=== PATIENT | male | born 1980 | race Caucasian/White ===

== ENCOUNTER 2016-02-12 07:46 | Emergency (ER) | payer OTHER ==
--- NOTE | 2016-02-12 08:56 | ER Document Report ---
ED ENT - General Chief Complaint: Ear Pain Stated Complaint: EAR PAIN Mode of Arrival: Ambulatory Information source: Patient Notes: 35-year-old male presents to the emergency department complaining of intermittently persistent and progressively worsening right ear pain over the last week and a half. Reports feeling of congestion and pressure to right ear. Denies fever, drainage, difficulty breathing or swallowing. Reports had mild cold which had resolved prior to current symptoms starting. TRAVEL OUTSIDE OF THE [place] IN LAST 30 DAYS: No - HPI Patient complains to provider of: Ear problem Onset: Last week Onset/Duration: Intermittent, Persistent, Worse Quality of pain: Achy Severity: Moderate Pain Level: 3 Location of pain: Ears Similar symptoms previously: No Recently seen / treated by doctor: No - Related Data Allergies/Adverse Reactions: No Known Allergies Allergy (Verified 02/12/16 07:56) Past Medical History - General Information source: Patient - Social History Smoking Status: Current Every Day Smoker Cigarette use (# per day): Yes - 1/2 pk Frequency of alcohol use: Rare Drug Abuse: Marijuana Lives with: Family Family History: Other - depression Patient has suicidal ideation: No Patient has homicidal ideation: No - Past Medical History Cardiac Medical History: Reports: Hx Hypercholesterolemia Psychiatric Medical History: Reports: Hx Anxiety, Hx Depression - PTSD Past Surgical History: Reports: Hx Appendectomy - Immunizations Hx Diphtheria, Pertussis, Tetanus Vaccination: Yes Review of Systems - Review of Systems Constitutional: No symptoms reported EENT: See HPI Cardiovascular: No symptoms reported Respiratory: No symptoms reported Gastrointestinal: No symptoms reported Genitourinary: No symptoms reported Male Genitourinary: No symptoms reported Musculoskeletal: No symptoms reported Skin: No symptoms reported Hematologic/Lymphatic: No symptoms reported Neurological/Psychological: No symptoms reported -: Yes All other systems reviewed and negative Physical Exam - Vital signs Vitals: Temp Pulse Resp BP Pulse Ox 97.6 F 111 H 18 124/82 99 02/12/16 07:54 02/12/16 07:54 02/12/16 07:54 02/12/16 07:54 02/12/16 07:54 Interpretation: Normal - General General appearance: Appears well, Alert - HEENT Head: Normocephalic, Atraumatic Eyes: Normal Conjunctiva: Normal Extraocular movements intact: Yes Eyelashes: Normal Pupils: PERRL Ears: Normal. No: Pinna tenderness, Tragus tenderness External canal: Normal. No: Cerumen impaction, Erythema, Foreign body, Swollen Tympanic membrane: Injected - Right, Purulent effusion - Right, Serous effusion - Left. No: Hemotympanum, Perforation Sinus: Normal. No: Tenderness Nasal: Normal Mouth/Lips: Normal Mucous membranes: Normal, Moist Pharynx: Normal. No: Blood in hypopharynx, Erythema, Exudate, Peritonsillar abscess, Post nasal drainage, Retropharyngeal abscess, Tonsillar hypertrophy, Uvular edema, Potential airway comprom., Other Neck: Normal. No: Anterior cervical chain, Posterior cervical chain, Lymphadenopathy, Meningismus, Subcutaneous emphysema - Respiratory Respiratory status: No respiratory distress Chest status: Nontender Breath sounds: Normal - CTAB Chest palpation: Normal - Cardiovascular Rhythm: Regular Heart sounds: Normal auscultation Murmur: No Pulses: Normal: Radial Normal capillary refill: Yes - Abdominal Inspection: Normal Distension: No distension Bowel sounds: Normal Tenderness: Nontender Organomegaly: No organomegaly - Back Back: Normal, Nontender - Extremities General upper extremity: Normal inspection, Nontender, Normal color, Normal ROM , Normal temperature General lower extremity: Normal inspection, Nontender, Normal color, Normal ROM , Normal temperature, Normal weight bearing. No: Myranda's sign - Neurological Neuro grossly intact: Yes Cognition: Normal Orientation: AAOx4 Dread Coma Scale Eye Opening: Spontaneous Dread Coma Scale Verbal: Oriented [place] Coma Scale Motor: Obeys Commands [place] Coma Scale Total: 15 Speech: Normal Motor strength normal: LUE, RUE, LLE, RLE Sensory: Normal - Psychological Associated symptoms: Normal affect, Normal mood - Skin Skin Temperature: Warm Skin Moisture: Dry Skin Color: Normal Course - Re-evaluation Re-evalutation: 02/12/16 09:01 Patient hemodynamically stable, in no distress, afebrile. Patient presentation and physical exam findings suggestive of uncomplicated right otitis media with effusion at this time. Home care, follow-up with PCP, ED return precautions discussed with patient who verbalized understanding and agrees with plan. - Vital Signs Vital signs: Temp Pulse Resp BP Pulse Ox 98.2 F 91 16 127/83 H 99 02/12/16 09:19 02/12/16 09:19 02/12/16 09:19 02/12/16 09:19 01/02/17 09:19 Discharge - Discharge Clinical Impression: Otitis media Qualifiers: Otitis media type: unspecified Laterality: right Chronicity: acute Condition: Stable Disposition: HOME, SELF-CARE Instructions: Otitis Media ([facility]), Serous Otitis Media ([facility]), Amoxicillin ([facility]) , Decongestant Medication ([facility]), Use of Hyez-Nxl-Dbfehrz Ibuprofen ([facility]), Acetaminophen Additional Instructions: Home self care: -Rest, hydration (6-10 glasses/day) -Steamy shower -Nasal saline irrigation lavage -Sleep with head elevated -Avoid cigarette smoke -Use of humidifier/vaporizer -Balanced nutrition Follow-up with your primary care provider this week. Return to the emergency department for any worsening symptoms or concerns. Prescriptions: Guaifenesin/P-Ephed HCl [Pseudoephedrine-Guaif Sr Tab] 1 tab PO Q12HP PRN #6 tab.sr.12h PRN Reason: Amoxicillin 1 tab PO BID 7 Days
[2016-02-12 09:25] VITALS: BP 127/83
== END 2016-02-12 09:20 | disposition home or self-care (01) ==
LOC: ER 07:46
DX: H66.91 Otitis media, unspecified, right ear (principal); H92.01 Otalgia, right ear; F17.210 Nicotine dependence, cigarettes, uncomplicated; E78.00 Pure hypercholesterolemia, unspecified
CPT/HCPCS: 99282

== ENCOUNTER 2016-02-25 18:47 | Emergency (ER) | payer OTHER ==
[2016-02-25 18:59] VITALS: BP 130/78
--- NOTE | 2016-02-25 19:00 | ER Document Report ---
ED Medical Screen (RME) - General Chief Complaint: Headache Stated Complaint: HEAD AND EAR PRESSURE Notes: Right ear pain also has a dental issue on that side of his mouth. TRAVEL OUTSIDE OF THE [place] IN LAST 30 DAYS: No - Related Data Allergies/Adverse Reactions: No Known Allergies Allergy (Verified 02/12/16 07:56) Past Medical History - Past Medical History Cardiac Medical History: Reports: Hx Hypercholesterolemia Psychiatric Medical History: Reports: Hx Anxiety, Hx Depression - PTSD Past Surgical History: Reports: Hx Appendectomy - Immunizations Hx Diphtheria, Pertussis, Tetanus Vaccination: Yes Physical Exam - Vital signs Vitals: Temp Pulse Resp BP Pulse Ox 98.0 F 90 20 130/78 H 98 02/25/16 18:58 02/25/16 18:58 02/25/16 18:58 02/25/16 18:58 02/25/16 18:58 Course - Vital Signs Vital signs: Temp Pulse Resp BP Pulse Ox 98.0 F 90 20 130/78 H 98 02/25/16 18:58 02/25/16 18:58 02/25/16 18:58 02/25/16 18:58 02/25/16 18:58
[2016-02-25] MEDS ORDERED: KETOROLAC TROMETHAMINE 60 MG/2 ML SDV IM ONE (20:25)
--- NOTE | 2016-02-25 20:25 | ER Document Report ---
HPI - HPI Patient complains to provider of: toothache Pain Level: 5 Context: patient is a 35 year old male who presents to the ED c/o toothache, he was seen here previously for Right AOM. denies ear pain today. c/o deep gum pain underneath his tooth that is infected and due to be extracted within the month. His dentist continued him on amoxicillin for ? abscess. pt has been compliant and denies any foul odor or drainage. His pain management regimen has consisted with naproxen, motrin and goodies with minimal improvement. - DERM Skin Color: Normal Past Medical History - General Information source: Patient - Social History Smoking Status: Current Every Day Smoker Family History: Other - depression Patient has suicidal ideation: No Patient has homicidal ideation: No - Past Medical History Cardiac Medical History: Reports: Hx Hypercholesterolemia Renal/ Medical History: Denies: Hx Peritoneal Dialysis Psychiatric Medical History: Reports: Hx Anxiety, Hx Depression - PTSD Past Surgical History: Reports: Hx Appendectomy - Immunizations Hx Diphtheria, Pertussis, Tetanus Vaccination: Yes Vertical Provider Document - CONSTITUTIONAL Exam Limitations: No Limitations General Appearance: WD/WN, Mild Distress, Other - no muffled speech - INFECTION CONTROL TRAVEL OUTSIDE OF THE [place] IN LAST 30 DAYS: No - HEENT HEENT: Atraumatic, Normal ENT Exam, Normocephalic Mouth Diagram: 1 - decay with tenderness of the medial gum at the tooth root - NECK Neck: Normal Inspection, Other - no tenderness to palpation, no evidence of иван angina - RESPIRATORY Respiratory: Breath Sounds Normal, No Respiratory Distress O2 Sat by Pulse Oximetry: 98 - CARDIOVASCULAR Cardiovascular: Regular Rate, Regular Rhythm, No Murmur Pulses: Normal: Radial - NEURO Level of Consciousness: Awake, Alert, Appropriate Motor/Sensory: No Motor Deficit, No Sensory Deficit Course - Re-evaluation Re-evalutation: 02/25/16 20:24 Patient is a 35 year old male who is HDS and NAD, afebrile. Evidence of tooth decay of number 32. No [id number] of abscess or jaw involvement. Patient is due to see his dentist on Friday. - Vital Signs Vital signs: Temp Pulse Resp BP Pulse Ox 98.0 F 90 20 130/78 H 98 02/25/16 18:58 02/25/16 18:58 02/25/16 18:58 02/25/16 18:58 02/25/16 18:58 Discharge - Discharge Clinical Impression: Toothache Condition: Good Disposition: HOME, SELF-CARE Instructions: Toothache ([facility]), Toradol Injection ([facility]), Ultram ([facility]) Additional Instructions: Please be sure to follow up with your dentist this week Prescriptions: Tramadol HCl [Ultram] 50 mg PO Q6HP PRN #15 tablet PRN Reason: Ibuprofen [Motrin 800 mg Tablet] 800 mg PO Q6H PRN #30 tab PRN Reason:
== END 2016-02-25 20:58 | disposition home or self-care (01) ==
LOC: ER 18:47
DX: K08.9 Disorder of teeth and supporting structures, unspecified (principal); F17.200 Nicotine dependence, unspecified, uncomplicated; E78.00 Pure hypercholesterolemia, unspecified
CPT/HCPCS: 99282; 96372; J1885